=== PATIENT | male | born 1955 | race Caucasian/White ===

== ENCOUNTER 2024-01-22 15:04 | Inpatient (IN) | payer MEDICARE, SELFPAY ==
[2024-01-22] VITALS (12 sets, daily range): BP systolic 130–179; BP diastolic 91–119; PULSE 87; O2SAT 98; BMI 30.3; BMI 30.1
--- NOTE | 2024-01-22 12:22 | ED.GENMED ---
History of Present Illness
General
Chief Complaint: Dizziness
Source: patient and family
Time Seen by Provider: 01/22/24 11:34
History of Present Illness
History of Present Illness:
68-year-old male with past medical history of hypertension (does not take medications) and GERD presenting to the emergency department for evaluation of vertigo-like symptoms, generalized weakness and fatigue that been ongoing for the last 2 days or
so however patient notes that for the last year or longer he has been dealing with the vertigo-like symptoms but the last 2 days he describes it to be worse. When asked what exactly is worse about the symptoms patient states he feels as if he
cannot even walk straight now. Patient states he feels that he is slurring his speech but family who is present with him states his speech seems baseline and normal to them. Patient states 1 side does not feel more weak than the other that his
whole body just feels weak. He has not sought any medical care for this vertigo/dizziness since it started. Denies any headaches, visual changes, focal weakness or numbness, chest pain, shortness of breath, abdominal pain, nausea, vomiting.
Social history was noted for at least 1 day of alcohol use with patient stating he will have usually up to 3 drinks when he does drink. Family history was noted for multiple family members with previous CVA. Patient currently visiting family from
[place]
Past History
Past History
ED Past Medical History: GERD and HTN
ED Past Surgical History: Other (hernia)
Social History
Tobacco: Non-smoker
Alcohol: Occasional
Drug: None
Personal: Single
Living: alone
Employment: Not employed
Review of Systems
Review of Systems
All Other Systems: ROS reviewed and negative except as documented in HPI and ROS
Phy Exam
Physical Exam
Physical Exam:
GENERAL: Alert , in no apparent distress
EYE: pupils equal and reactive, pupils 3mm b/l, EOMI, no nystagmus
NECK: Supple, no significant adenopathy.
ENT: o/p clr, mmm.
CARDIAC: Regular rate and rhythm, no murmur .
LUNGS: Clear breath sounds bilaterally, no acute respiratory distress, no wheezes/rales/rhonchi
ABDOMEN: Soft, without focal tenderness, no r/g, no cvat
SKIN: Warm and dry, skin intact.
MUSCULOSKELETAL: No edema, well perfused.
PSYCH: Normal and appropriate interaction.
NEURO: Moves all extremities without difficulty, no ataxia, no dysarthria or aphasia, no facial droop, sensation intact throughout b/l UE and LE, strength intact and equal throughout
Scores
NIH Stroke Score
Level of Consciousness: 0 - Alert
LOC Questions: 0-Answers both correctly
LOC Commands: 0-Performs both correctly
Best Horizontal Gaze: 0-Normal
Visual Muller: 0=Normal, no visual loss
Facial Palsy: 0=Normal, symmetrical
Motor - Right Arm: 0=No drift 10 seconds
Motor - Left Arm: 0=No drift 10 seconds
Motor - Right Le-No drift 5 seconds
Motor - Left Le-No drift 5 seconds
Limb Ataxia: 0-Absent
Sensation: 0-Normal
Best Language: 0-No aphasia
Dysarthria: 0-Normal
Extinction and Inattention: 0-No abnormality
Total Score:: 0
Heart Failure Risk
Heart Failure Risk Score: Not Applicable
Heart Score for Chest Pain Patients
STEMI patient?: Not applicable
Withdrawal Assessment of Alcohol
Withdrawal Assessment Completed?: Not applicable
Course
Orders/Labs/Results
Orders:
Orders
01/22/24 11:26
EKG [Electrocardiogram (*1)] Urgent
Reason for Study: Vertigo / Dizzy
EKG- Treatment ONCE
01/22/24 11:58
CT Head W/o Iv Contrast Urgent
Comment:
Reason For Exam: worsening vertigo, feels unsteady
01/22/24 12:12
CMP [Comprehensive Metabolic Panel] Urgent
Cardiovascular Evaluation Urgent
Complete Blood Count/No Diff Urgent
Glycohemoglobin (HgbA1c) Urgent
01/22/24 12:26
Physical Therapy Consult [Pt Eval And Treat] Urgent
Treatment: vertigo eval
Activity Level: Ambulate
01/22/24 13:42
Aspirin Chewable [Low Strength Aspirin] 324 mg PO NOW STA
Clopidogrel Bisulfate [Plavix] 300 mg PO NOW STA
01/22/24 14:03
NEUROLOGY CONSULT Routine
Consulting Provider: Sloan Acevedo
Was physician already notified: Yes
01/22/24 14:05
Add On- LAB Routine
Tests Added?: Lipid panel, A1C
01/22/24 14:17
Admit/Transfer Patient As Directed
Co-Sign Provider:
Level of Care: Inpatient admission
Assign to:: Telemetry
Physician / Group: Deborah/hospitalist
Diagnosis: pontine stroke
Reason for Telemetry: CVA/TIA
Date to Stop Telemetry: 01/25/24
Time to Stop Telemetry: 11:00
Reason for Hospitalization: pontine stroke
Expected length of stay greater than two midnights?: Yes
ELOS- Estimated Length of Stay in days: 3
I certify the patient meets the requirements for IP care: Yes
Code Status As Directed
Resuscitation Status: Full Code
01/25/24 11:00
DC Protocol for Telemetry ONCE
Abnormal Lab Results
01/22/24
12:12
BUN 21 H mg/dl
(9-20)
01/22/24 12:12
01/22/24 12:12
Vital Signs
Initial and Last Documented VS:
Initial Vital Signs
Temp Pulse BP Pulse Ox
98.2 F 100 156/119 97
01/22/24 10:53 01/22/24 10:53 01/22/24 10:53 01/22/24 10:53
Last Documented Vital Signs
Temp Pulse Resp BP Pulse Ox
98.2 F 83 14 159/108 98
01/22/24 10:53 01/22/24 13:45 01/22/24 13:45 01/22/24 13:20 01/22/24 13:45
Floriculturist consulted with Physician
Floriculturist consulted with physician?: Yes
Name of Physician Consulted: Devin
MDM/Problems Addressed
Differential Diagnosis Includes:
BPPV, labyrhinthisis, cerebellar stroke, electrolyte abnormalities, anemia
MDM/Problems Addressed:
68-year-old male presenting to the emergency department for evaluation of vertiginous-like symptoms that have been ongoing for at least 1 year if not longer but acutely worse over the last 2 days per patient states he feels as if he cannot even
ambulate straight or steadily. Currently visiting from [place]. No focal findings during my exam however patient does not feel as if he is able to stand up and ambulate. Will obtain a CT scan of the head, labs and physical therapy consult
ordered. Unclear etiology for vertigo at this time.
*Radiology
Radiology exam reviewed: radiology read reviewed (16 mm pontine infarct)
*Pulse Oximetry
Patient hypoxic: no
*EKG
Interpreted by ED Provider?: Yes
Interpretation: normal
Heart Rate: 86
Rate: normal
Rhythm: sinus
Verbena: normal axis
Ischemia: no ischemia
*Hair Dryer Interpretation
Rate: normal
Rhythm: sinus
*Critical Care Note
Total Time (30-74mins, 75-104mins- exclusive of procedures): Not Applicable
Patient Management
Discussion with other providers: Hospitalist and [employer]
Escalation/DeEscalation of care consider admission/obs:
Patient CT scan shows a suspected right-sided pontine infarct. Radiology recommending further evaluation with MRI. Patient was seen by physical therapy who notes patient was not able to ambulate without significant fall risk. No vertiginous
symptoms elicited. They felt symptoms may be a little bit more exaggerated/weakness on the right side but this would go against the right-sided pontine findings on CT. I notified neurology who is recommending 324 mg of aspirin and 300 mg of Plavix
at this time. They will follow. Hospitalist team was notified as well and accepts for continued evaluation and treatment.
ED Attending Note
-
Portions of this chart may have been created with voice recognition software.� Occasional wrong word or��sound alike� substitutions may have occurred due to the inherent limitations of voice recognition software.
Discharge Plan
Departure
Patient Disposition: Admit
Date of Disposition: 01/22/24
Time of Disposition: 13:56
Presentation/result/management discussed w/ accepting MD/DO: Hospitalist
Discharge Problem:
Right pontine CVA, Hypertension
Referrals:
NONE,* [Family Provider] -
Interventions
Interventions:
*Risk Screen - Suicide Last Done: 01/22/24 11:45
*General Assessment Last Done: 01/22/24 11:45
*Neglect/Abuse Screening Last Done: 01/22/24 11:45
ED- Fall Risk Assessment Last Done: 01/22/24 11:45
*ED COVID-19 Vaccine History Last Done: 01/22/24 10:56
ED- Neurological Assessment Last Done: 01/22/24 11:45
ED- Cardiac Assessment Last Done: 01/22/24 11:45
ED Swallowing Screen Last Done: 01/22/24 11:45
Discharge Date and Time
Print Language: POLISH
[2024-01-22 12:23] LABS: Hematocrit 44.4 % (39.0-52.0); Hemoglobin 15.6 g/dL (13.0-18.0); Mean Corp Hgb Conc. 35.1 g/dL (33.0-37.0); Mean Corpuscular Hgb 28.5 pg (27.0-31.0); Mean Corpuscular Volume 81.2 fL (80.0-94.0); Mean Platelet Volume 10.3 fL (7.4-10.4); Platelet Count 181 10^3/uL (130-400); Red Blood Cell Count 5.47 10^6/uL (4.70-6.10); Red Cell Dist. Width 13.3 % (11.5-14.5); White Blood Cell Count 6.5 10^3/uL (4.8-10.8)
[2024-01-22 12:36] LABS: ALT (SGPT) 21 U/L (0-50); AST (SGOT) 22 U/L (17-59); Albumin 4.6 g/dl (3.5-5.0); Alkaline Phosphatase 81 U/L (38-126); Blood Urea Nitrogen 21 mg/dl (9-20); Calcium 9.8 mg/dl (8.4-10.2); Carbon Dioxide 23 mmol/L (22-30); Chloride 105 mmol/L (98-107); Estimated Creatinine Clearance 93 ml/min; Glucose 94 mg/dl (70-99); Potassium 4.4 mmol/L (3.5-5.1); Sodium 137 mmol/L (135-145); Total Bilirubin 1.2 mg/dl (0.2-1.3); Total Protein 7.1 g/dl (6.3-8.2); eGFR > 60.00
[2024-01-22] MEDS: LOW STRENGTH ASPIRIN 324 MG PO (13:53)
[2024-01-22] MEDS: PLAVIX 300 MG PO (13:54)
--- NOTE | 2024-01-22 14:00 | HPS.HSE ---
Family Physician
-
Family Physician: * NONE
Chief Complaint
-
Severe generalized weakness, subjective slurred speech
History of Present Illness
HPI: 68-year-old male with past medical history of hypertension (does not take medications) and GERD; p/w generalized weakness so much so that he is unable to stand or walk.
Patient has been feeling weak for the past year or so, but his weakness has become significantly worse over the past 2 days prior to admission.
He also endorsed to subjective slurred speech.
He denies to any dizziness/room spinning sensation, headache, nausea/vomiting, fever/chills, chest pain/shortness of breath, abdominal pain, change in urination or bowel movement.
Patient admits to binge smoking, and binge drinking occasionally.
He is currently visiting family from [place] where he resides normally.
Medical History
Past Medical History
Past Medical History: Reports GERD and HTN
Past Surgical History: Reports Other (Right inguinal hernia surgery)
Social History
Tobacco: Smoker
Alcohol: Occasional
Family History
Family History: Not pertinent
Allergies / Home Medications
Allergies reflects when Allergies were last updated in [facility].
Home Medications with original date entered in [facility]
Allergy/Medication List:
Medications on admission are unable to be verified or confirmed at this time.
Review of Systems
-
Neurological: Reports See HPI and Weakness; Denies Headache or Numbness
Physical Exam
Vital Signs
Vital Signs
Temp Pulse Resp BP Pulse Ox
36.8 C 83 14 159/108 98
01/22/24 10:53 01/22/24 13:45 01/22/24 13:45 01/22/24 13:20 01/22/24 13:45
Physical Exam
General: Well Developed, Well Nourished, No Apparent Distress, Comfortable and Conversant
HEENT: NormoCephalic, Moist mucous membranes and Atraumatic
Respiratory: Clear and Non Labored Respirations; No Accessory Resp Muscle Use
Cardiac: S1/S2 and Regular Rhythm; No Murmur or Rub
GI: Soft, Non Tender, Non Distended and Normal Bowel Sounds; No Organomegaly
Rectal: Deferred by Provider
Musculoskeletal: No Clubbing, No Cyanosis and No Edema
Skin: No Rash
Neuro: Awake and AO x 3; No Facial Droop
Psych: Calm and Intact Judgment/Insight
Laboratory Results
-
01/22/24 12:12
01/22/24 12:12
Laboratory Results
Total Bilirubin 1.2 mg/dl (0.2-1.3) 01/22/24 12:12
AST 22 U/L (17-59) 01/22/24 12:12
ALT 21 U/L (0-50) 01/22/24 12:12
Alkaline Phosphatase 81 U/L (38-126) 01/22/24 12:12
Data Reviewed
-
CT Scan: Report Reviewed by me
Lab Data: Labs Reviewed by me
Impression/Plan
-
HPI: 68-year-old male with past medical history of hypertension (does not take medications) and GERD; p/w generalized weakness so much so that he is unable to stand or walk.
Patient has been feeling weak for the past year or so, but his weakness has become significantly worse over the past 2 days prior to admission.
He also endorsed to subjective slurred speech.
He denies to any dizziness/room spinning sensation, headache, nausea/vomiting, fever/chills, chest pain/shortness of breath, abdominal pain, change in urination or bowel movement.
Patient admits to binge smoking, and binge drinking occasionally.
He is currently visiting family from [place] where he resides normally.
A/P:
# Generalized weakness, likely due to pontine stroke
CT head: 16mm low-density lesion in the anterior aspect of the right side of the josé miguel suggesting pontine infarct which, if clinically indicated, could be further evaluated with MRI.
Check MRI brain, MRA brain and neck
Check LDL and A1C
Status post full dose aspirin and Plavix in ER, continue with DAPT aspirin and Plavix
Speech eval prior to starting diet
Neurology consult
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
Monitor blood pressure, allow permissive hypertension for now
# GERD
DVT ppx: SCD for now
FC
[2024-01-22 14:42] LABS: HDL Cholesterol 46 mg/dl; LDL Cholesterol, Calculated 129 mg/dl; Total Cholesterol 201 mg/dl (50-199); Triglyceride 134 mg/dl (10-149); Very Low Density Lipoprotein 26 mg/dl (0-30)
[2024-01-22] MEDS: LIPITOR 40 MG PO (17:55)
[2024-01-23 03:00] VITALS: BP 152/102
[2024-01-23 06:00] VITALS: BMI 30.1
[2024-01-23 07:10] VITALS: BP 147/113
[2024-01-23 07:29] LABS: HDL Cholesterol 46 mg/dl; LDL Cholesterol, Calculated 135 mg/dl; Total Cholesterol 200 mg/dl (50-199); Triglyceride 96 mg/dl (10-149); Very Low Density Lipoprotein 19 mg/dl (0-30)
[2024-01-23] MEDS: ASPIR LOW (ENTERIC COATED) 81 MG PO (08:27)
[2024-01-23] MEDS: PLAVIX 75 MG PO (08:28)
--- NOTE | 2024-01-23 08:53 | CON.NEURO4 ---
Consultation - Neurology 4
-
CONSULTING PHYSICIAN: Wallace Lisa MD (Neurology)
REFERRING PHYSICIAN: Sherri Cabrera
DICTATED BY: Wallace Lisa
DATE/TIME OF REQUEST: 01/22/2024
DATE/TIME OF CONSULTATION: 01/23/2024 0845
Reason for Consultation: Unsteady gait
History of Present Illness:
This is a 68 year old right handed male who was admitted to the hospital with difficulty walking. Patient's symptoms began on January 18Monday. He gives a history of GERD hypertension who is not on antihypertensives. He was in his usual state of
health till Monday when he noted that he had difficulty maintaining his balance and difficulty walking. He did not seek any medical attention and came into the emergency room yesterday. On admission he was noted to have slurred speech with left
facial droop and his blood pressure was elevated. He denies headache dizziness double vision blurring of vision. No focal weakness or numbness. No history of falls or head injuries no loss conscious no seizures
-
Past Medical History: HTN, GERD
Surgical History: None
Family History: HTN
Social History: Lives alone. Smokes weekly. Drink Whisky weekly. He lives in [place] and is visiting family in [place]
Allergies: Penicillin
Home Medications: Prilosec
Review of Symptoms:
Patient denies any fever, headache, chest pain, shortness of breath, GI or symptoms.
�Per the HPI.�All systems are reviewed negative except above.
Vital Signs: Vital Signs
Temp Pulse Resp BP Pulse Ox
36.8 C 89 18 147/113 99
01/23/24 07:10 01/23/24 07:10 01/23/24 07:10 01/23/24 07:10 01/23/24 07:10
Physical Exam:
The patient is afebrile, heart sounds S1 and S2 are (regular / irregular), and chest is clear to auscultation bilaterally.
Head and neck: Normocephalic atraumatic extraocular movements intact pupils equal reactive to light
Abdomen: Soft bowel sounds present
Extremities: Clubbing cyanosis or edema
NIH Stroke Scale (if applicable): 3
Neurologic Examination:
The patient is awake, alert and oriented x 3. (He/She) is able to follow commands and answer questions appropriately. There is no aphasia or dysarthria. On cranial nerve assessment, pupils are 3 mm bilateral, round and reactive to light and
accommodation. Visual crowe are full. Extraocular movements are intact. Facial sensations are intact and bilaterally symmetrical. There is facial asymmetry with left facial droop(UMN). Hearing is intact bilaterally to normal conversation volume.
Tongue palate and uvula are midline. Sternocleidomastoid strengths are full bilaterally.
Motor strengths are 5/5 bilateral upper and lower extremities on medical research [place] scale. There is no drift or involuntary movement noted.
Deep tendon reflexes are 4+ bilateral upper and lower extremities and Babinski is absent bilaterally.
Sensations of pain, touch, temperature and vibration are intact and bilaterally symmetrical. There was no extinction noted on double simultaneous stimulation. Coordination is intact by finger to nose bilaterally. Gait is assisted
Lab Results: Lab Results
01/22/24 12:12
01/22/24 12:12
Sodium 137 mmol/L (135-145) 01/22/24 12:12
Potassium 4.4 mmol/L (3.5-5.1) 01/22/24 12:12
BUN 21 mg/dl (9-20) H 01/22/24 12:12
Glucose 94 mg/dl (70-99) 01/22/24 12:12
Calcium 9.8 mg/dl (8.4-10.2) 01/22/24 12:12
LDL Cholesterol, Calc 135 mg/dl 01/23/24 06:43
Neuro Imaging: CT of the head shows diffuse cortical atrophy with extensive small vessel disease.
MRI of the brain: . Acute right pontine lacunar infarct. Chronic ischemic changes pontine. Cortical atrophy extensive small vessel disease
MRA of the head shows atherosclerotic changes with dilatation of the internal carotid
MRA of the neck shows
1. 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
2. Fusiform aneurysmal dilatation of both proximal internal carotid arteries (1.1 cm diameter).
3. Aneurysmal dilatation of the terminal communicating segment of the intracranial left internal carotid artery (8 mm diameter).
4. Severe calcific atherosclerotic plaque in the right intracranial vertebral artery causing 50% diameter stenosis.
5. 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
Impression:
Mr. JAMEY MARMOLEJO is a 68 year old M with history of uncontrolled hypertension who has presented to the hospital with new onset gait ataxia with hyperreflexia. MRI revealed acute pontine lacunar infarction and chronic ischemic changes in the josé miguel
Given ataxia and hyperreflexia and arthritic changes in the C-spine there is a concern for cervical spondylosis and cord impingement
Patient has the following risk factors for their symptoms: HTN and smoking
Recommendations:
1. Aspirin 81 mg
2. Strict blood pressure control
3. Stop smoking
4. Statins
5. MRI cervical spine
6. PT/OT
Discussed patient care with: Hospitalist
Medications
-
Active Medications
Generic Name Dose Route Start Last Admin
Trade Name Freq PRN Reason Stop Dose Admin
Acetaminophen 650 mg 01/22/24 17:11
Acetaminophen 650 Mg Rectal Suppository RECTAL 02/19/24 17:10
Q4HPRN PRN
BRISENO, mild pain, or temp >100.4F
Acetaminophen 650 mg 01/22/24 17:11
Acetaminophen 325 Mg Tablet PO 02/19/24 17:10
Q4HPRN PRN
BRISENO, mild pain, or temp >100.4F
Aspirin 81 mg 01/23/24 08:00 01/23/24 08:27
Aspirin 81 Mg (Enteric Coated) Tablet PO 02/20/24 07:59 81 mg
DAILY ISSAC Administration
Atorvastatin Calcium 40 mg 01/22/24 18:00 01/22/24 17:55
Atorvastatin (Lipitor) 40 Mg Tablet PO 02/19/24 17:59 40 mg
QPM ISSAC Administration
Clopidogrel Bisulfate 75 mg 01/23/24 08:00 01/23/24 08:28
Clopidogrel 75 Mg Tablet PO 02/12/24 08:01 75 mg
DAILY ISSAC Administration
Non-Formulary Medication 10 mg 01/23/24 08:45
Omeprazole PO 02/20/24 08:44
DAILY ISSAC
Sodium Chloride 0 flush 01/22/24 18:00
Sodium Chloride 0.9% (Flush) Syringe IV 02/19/24 17:59
PER PROTOCOL ISSAC
Home Medications
�Medication �Instructions �Recorded
Unknown Eye Drops 1 drp BOTH EYES HSPRN PRN dry eyes 01/22/24
omeprazole 10 mg capsule,delayed 10 mg PO DAILY 01/22/24
release
polyethylene glycol 400 1 % eye 1 drp BOTH EYES DAILYPRN PRN dry 01/22/24
drops (Visine Dry Eye Relief) eyes
Vital Signs and Labs
-
Vital Signs and Labs:
Vital Signs
Temp Pulse Resp BP Pulse Ox
36.8 C 89 18 147/113 99
01/23/24 07:10 01/23/24 07:10 01/23/24 07:10 01/23/24 07:10 01/23/24 07:10
Lab Results
01/22/24 12:12
01/22/24 12:12
Sodium 137 mmol/L (135-145) 01/22/24 12:12
Potassium 4.4 mmol/L (3.5-5.1) 01/22/24 12:12
BUN 21 mg/dl (9-20) H 01/22/24 12:12
Glucose 94 mg/dl (70-99) 01/22/24 12:12
Calcium 9.8 mg/dl (8.4-10.2) 01/22/24 12:12
LDL Cholesterol, Calc 135 mg/dl 01/23/24 06:43
Allergies
-
Allergies
Allergy/AdvReac Type Severity Reaction Status Date / Time
Penicillins Allergy Rash Verified 01/22/24 10:59
--- NOTE | 2024-01-23 09:09 | W.PN.HOSP.TC ---
Today's Communication/Plan
-
see A/P
Assessment / Plan
Assessment / Plan
HPI: 68-year-old male with past medical history of hypertension (does not take medications) and GERD; p/w generalized weakness so much so that he is unable to stand or walk.
Patient has been feeling weak for the past year or so, but his weakness has become significantly worse over the past 2 days prior to admission.
He also endorsed to subjective slurred speech.
He denies to any dizziness/room spinning sensation, headache, nausea/vomiting, fever/chills, chest pain/shortness of breath, abdominal pain, change in urination or bowel movement.
Patient admits to binge smoking, and binge drinking occasionally.
He is currently visiting family from [place] where he resides normally.
A/P:
# Generalized weakness due to acute pontine stroke
CT head: 16mm low-density lesion in the anterior aspect of the right side of the candice suggesting pontine infarct which, if clinically indicated, could be further evaluated with MRI.
MRI brain confirmed ACUTE and CHRONIC ISCHEMIC INFARCTS in the CANDICE.
MRA brain and neck noted right intracranial vertebral artery 25-50% stenosis; 70% stenosis of right posterior cerebral artery; 70% narrowing of right internal carotid artery.
Recc pt to follow up with vascular team when he returns to [place]
LDL at 135, started Lipitor 40 mg HS
Follow A1C
Check echo
Status post full dose aspirin and Plavix in ER, continue with DAPT aspirin and Plavix
Start Norvasc 2.5 mg for better BP control
Speech eval prior to starting diet
PT OT eval
Neurology on board
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
Start Norvasc 2.5 mg for better BP control
# Hyperreflexia noted by Neuro, felt unrelated to stroke
Check MRI Cervical spine
# GERD
PPI
DVT ppx: Lovenox SQ
FC
DW RN
DW Neuro Dr Wallace Lisa
total time spent 51 min
Anticipated Discharge: Within 24 hours
Subjective/Interval History
-
Date of Service: January 23, 2024
Objective Data
-
Vital Signs:
Vital Signs
Temp Pulse Resp BP Pulse Ox
36.8 C 89 18 147/113 99
01/23/24 07:10 01/23/24 07:10 01/23/24 07:10 01/23/24 07:10 01/23/24 07:10
Review of Systems
-
Neuro: Reports Other (off balance )
Physical Exam
-
General: Well Developed, Well Nourished, No Apparent Distress, Comfortable and Conversant; Negative Respiratory Distress
HEENT: Normocephalic, Atraumatic, Nose Appears Normal and Ears Appear Normal; Negative Oxygen
Respiratory: Clear to Auscultation and Non Labored Respirations; Negative Accessory Resp Muscle Use
Cardiac: Regular Rhythm and S1/S2
GI: Soft, Nontender, Nondistended and Normal Bowel Sounds
Skin: Warm and Dry
Neuro: Awake, Alert and Oriented
Psych: Calm
Data Reviewed
-
MRI: Report Reviewed by me, Discussed with Physician and Discussed with Patient
Labs: Labs Reviewed by me
[2024-01-23] MEDS: PROTONIX 20 MG PO (09:22)
[2024-01-23 09:30] LABS: Glycohemoglobin (HgbA1c) 5.2 % (4.0-5.6)
--- NOTE | 2024-01-23 10:16 | CARDSERVLU ---
Echocardiogram with Lumason completed after protocol screening completed. Allergies verified.
Patent IV site: _Left antecubital site clear____
IV site flushed with 0.9% NaCl pre and post administration.
Diluted bolus method utilized to enhance visualization of ventricular sanchez.
Total volume given: __5__ mL
Patient tolerated all procedures well without complications.
--- NOTE | 2024-01-23 10:38 | PTOTSP ---
Speech Therapy Assessment
Patient endorses slightly slurred speech that is no readily noted or impacting patient on a functional level. Expressive and receptive language skills deemed within functional limits. Question if patient presents with reduced reasoning/problem
solving skills.
Recommend
1. Continue with current diet of regular solids and thin liquids.
2. ST will follow and attempt further assessment of cognitive/communication skills.
3. Comprehensive assessment in next level of care
--- NOTE | 2024-01-23 10:58 | CM ---
Addendum entered by Ilsa Loera 01/23/24 15:09:
Per physician patient is now agreeable to [facility] at [facility], physical therapy are recommending acute rehab, referral sent to [facility], and will await PM&R consult.
Original Note:
dealer sales manager reviewed patient's chart and met with patient and patient lives over a garage in [place] with 3 flights of stairs into home. Patient reports he was independent with adl's and ambulation, no dme, patient drove from [place] to visit
friend in this area. Patient is planning on returning to [place] when stable. Patient does not have a primary care physician.
Pharmacy; [facility]
Plan; To follow with patient progress and assist with discharge planning.
[2024-01-23 12:53] VITALS: BP 164/108; PULSE 108
[2024-01-23 15:10] VITALS: BP 139/111
[2024-01-23] MEDS: LIPITOR 40 MG PO (15:58)
[2024-01-23] MEDS: NORVASC 2.5 MG PO ×2 (15:59→21:04)
[2024-01-23] MEDS: LOVENOX SC (15:59)
--- NOTE | 2024-01-23 16:45 | CON.MR ---
Consultation
Consultation Request
Date/Time Consultation Performed: 01/23/24, 1615
Performing Provider: Dr. Yepez
Reason for Consultation: CVA
Medical History
-
Chief Complaint: CVA
History of Present Illness:
I had the opportunity to see Joce Munoz in rehabilitation consultation today. This is a 68 year old male with past medical history of hypertension and GERD admitted after some increased weakness, slurred speech. States has had some generalized
weakness for many months, but worse over the past couple of days. Lives in [place] and is here visiting friends. No falls or any buckling of the legs. Denies any numbness or tingling in the UE or LE.
Initial head CT did note some right pontine changes, and MRI revealed right pontine lacunar infarct and well as extensive small vessel white matter changes, bilateral ICA dilatation/aneurysm, Right ICA stenosis, Right MIXING PAN TENDER stenosis, but no surgical
intervention deemed warranted.
Hospital course so far otherwise unremarkable.
Patient seen at bedside this afternoon. Lying comfortably in bed. Denies any headache or dizziness. No vision changes. Denies chest pain or SOB, no GI complaints. Denies any numbness or paresthesias in the UE/LE.
Past Medical History
Past Medical History: GERD and HTN
Family History
Family History: Reviewed & Not Pertinent
Social History
Functional Level Premorbidity:
Independent for all activities. Denies any previous cane or assitive device. Lives alone in 2nd floor apartment above garage. ~20 steps to enter. Drives and does have his car here from [place].
Current Funct Level: Ambulation, Transfer, UE/LE Dressing:
Supervision transfers, Ambulation contact guard 50' with RW, but min A with no assistive device.
Tobacco: Smoker
Alcohol: Occasional
Number of Floors: 2
Potential First Floor Set Up: No
Driving: Yes
Allergies / Home Medications
Allergy/AdvReac Type Severity Reaction Status Date / Time
Penicillins Allergy Rash Verified 01/22/24 10:59
�Medication �Instructions �Recorded �Confirmed �Last Taken �Type
Unknown Eye Drops 1 drp BOTH EYES HSPRN PRN dry eyes 01/22/24 01/22/24 Unknown History
omeprazole 10 mg capsule,delayed 10 mg PO DAILY 01/22/24 01/22/24 01/22/24 History
release
polyethylene glycol 400 1 % eye 1 drp BOTH EYES DAILYPRN PRN dry 01/22/24 01/22/24 Unknown History
drops (Visine Dry Eye Relief) eyes
Review Of Systems
-
History Source: Patient
All other systems: Negative unless noted
Constitutional: Reports No Symptoms
Eye: Reports No Symptoms
EENT: Reports No Symptoms
Respiratory: Reports No Symptoms
Cardiac: Reports No Symptoms
Abdomen/GI: Reports No Symptoms
: Reports No Symptoms
Musculoskeletal: Reports No Symptoms
Integumentary: Reports No Symptoms
Neurological: Reports No Symptoms
Psych: Reports No Symptoms
Endocrine: Reports No Symptoms
Hematologic/Lymphatic: Reports No Symptoms
Immunology: Reports No Symptoms
Physical Exam
Active Medications
Generic Name Dose Route Start Last Admin
Trade Name Freq PRN Reason Stop Dose Admin
Acetaminophen 650 mg 01/22/24 17:11
Acetaminophen 650 Mg Rectal Suppository RECTAL 02/19/24 17:10
Q4HPRN PRN
BRISENO, mild pain, or temp >100.4F
Acetaminophen 650 mg 01/22/24 17:11
Acetaminophen 325 Mg Tablet PO 02/19/24 17:10
Q4HPRN PRN
BRISENO, mild pain, or temp >100.4F
Amlodipine Besylate 2.5 mg 01/23/24 16:00 01/23/24 15:59
Amlodipine 2.5 Mg Tablet PO 02/20/24 15:59 2.5 mg
BID ISSAC Administration
Aspirin 81 mg 01/23/24 08:00 01/23/24 08:27
Aspirin 81 Mg (Enteric Coated) Tablet PO 02/20/24 07:59 81 mg
DAILY ISSAC Administration
Atorvastatin Calcium 40 mg 01/22/24 18:00 01/23/24 15:58
Atorvastatin (Lipitor) 40 Mg Tablet PO 02/19/24 17:59 40 mg
QPM ISSAC Administration
Clopidogrel Bisulfate 75 mg 01/23/24 08:00 01/23/24 08:28
Clopidogrel 75 Mg Tablet PO 02/12/24 08:01 75 mg
DAILY ISSAC Administration
Enoxaparin Sodium 40 mg 01/23/24 18:00 01/23/24 15:59
Enoxaparin Sodium 40 Mg/0.4 Ml Syringe SC 02/20/24 17:59 Not Given
QPM ISSAC
Pantoprazole Sodium 20 mg 01/23/24 10:00 01/23/24 09:22
Pantoprazole 20 Mg Delayed Release Tablet PO 02/20/24 09:59 20 mg
DAILY ISSAC Administration
Sodium Chloride 0 flush 01/22/24 18:00
Sodium Chloride 0.9% (Flush) Syringe IV 02/19/24 17:59
PER PROTOCOL ISSAC
Vital Signs
Temp Pulse Resp BP Pulse Ox
98.1 F 100 19 139/111 97
01/23/24 15:10 01/23/24 15:10 01/23/24 15:10 01/23/24 15:10 01/23/24 15:10
Height 6 ft 6 in
Actual Weight 117.962 kg
Body Mass Index (BMI) 30.1
Physical Exam
Physical Exam:
General Appearance/Observation: Well-developed, well-nourished individual in no apparent distress, lying comfortably in bed
Pain/Comfort Assessment: Denies
Mood/Affect: Appropriate
Eyes: Conjunctiva/Lids: normal Pupils: pupils equal round and reactive to light and Accommodation. No nystagmus
Ears/Nose/Throat: oral mucosa moist, throat clear. Lips/Teeth/Gums: normal
Neck: No muscle spasm or tenderness
Cardiovascular: Heart: regular, no murmur
Pulses: dorsalis pedis 2+ bilaterally
Respiratory: Respiratory Effort/Chest Expansion: normal Auscultation: Clear to auscultation bilaterally
Gastrointestinal: abdomen not tender, no distension, normal abdominal bowel sounds
Genitourinary: No Beltran
Rectal Exam: Deferred
Extremities: Edema: None Cyanosis: None Trophic changes: None
Neurology Exam:
Orientation: Alert, Oriented to self, Time, Place
Memory: Intact immediately and at 3 minutes
Higher cortical function
Speech: Intact
Repetition: Intact
Comprehension: Intact
Two step command: Intact
Naming: Intact
Cranial Nerves: -
CNII: Pupillary light reflex: Intact Visual Field: Intact
CN III, IV, : Extraocular muscles: Intact
CN V: Facial Sensation at Forehead: Intact , Maxilla: Intact, Mandible: Intact
CN VII: Facial movement: Mild left sided weakness.
CN VIII: Hearing: Normal
CN IX/X: Speech & swallow: Normal, Position of Uvula: Midline
CN XI: Shoulder shrug: Symmetric
CN XII: Tongue protrusion: Midline
Sensory:
Light touch: Intact in bilateral upper and lower extremities
Reflexes:
Achilles: 1+ bilaterally
Babinski: Downgoing bilaterally
Clonus: None
Calixto: Negative bilaterally
Cerebellar: Dysmetria/Ataxia: Mild apraxia/ataxia with Left more than right UE.
Musculoskeletal:
Motor: (Manual muscle scale 0-5)
Muscle SA EF WE EE FF FA HF KE DF EHL PF
Right 5 5 5 5 5 5 5 5 5 5 5
Left 4 5 5 5 4 4 4+ 5 5 5 5
Tone: Normal in all extremities
Range of Motion: Passively within normal limits in all extremities
Lab Results
01/22/24 12:12
01/22/24 12:12
WBC 6.5 10^3/uL (4.8-10.8) 01/22/24 12:12
Hgb 15.6 g/dL (13.0-18.0) 01/22/24 12:12
Hct 44.4 % (39.0-52.0) 01/22/24 12:12
MCV 81.2 fL (80.0-94.0) 01/22/24 12:12
Plt Count 181 10^3/uL (130-400) 01/22/24 12:12
Sodium 137 mmol/L (135-145) 01/22/24 12:12
Potassium 4.4 mmol/L (3.5-5.1) 01/22/24 12:12
Chloride 105 mmol/L (98-107) 01/22/24 12:12
Carbon Dioxide 23 mmol/L (22-30) 01/22/24 12:12
BUN 21 mg/dl (9-20) H 01/22/24 12:12
Creatinine 1.0 mg/dL (0.7-1.3) 01/22/24 12:12
eGFR > 60.00 01/22/24 12:12
Glucose 94 mg/dl (70-99) 01/22/24 12:12
Hemoglobin A1c 5.2 % (4.0-5.6) 01/22/24 12:12
Calcium 9.8 mg/dl (8.4-10.2) 01/22/24 12:12
Total Bilirubin 1.2 mg/dl (0.2-1.3) 01/22/24 12:12
AST 22 U/L (17-59) 01/22/24 12:12
ALT 21 U/L (0-50) 01/22/24 12:12
Alkaline Phosphatase 81 U/L (38-126) 01/22/24 12:12
Total Protein 7.1 g/dl (6.3-8.2) 01/22/24 12:12
Albumin 4.6 g/dl (3.5-5.0) 01/22/24 12:12
Diagnostic Results
As per HPI.
Comorbidities / Impairment Group
Comorbidities:
HTN
Impairment Group:
R CVA, L weakness
Assessment / Plan
Plan
Assessment:
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
PM&R PT/OT to increase independence with ADLs, improve balance, coordination, endurance, strength, mobility, community reintegration, decreased burden of care on others and family education.
CVA: Secondary prophylaxis with aspirin, plavix, statin, and blood pressure control (SBP less than 180 and diastolic less than 100 to participate with therapy for ischemic stroke). Continue to monitor neurologic status.
- Neurology following and concerned some of the ataxia, and increased reflexes could be myelopathic - checking MRI cervical spine.
Left nondominant hemiparesis: High risk for falls and sliding out of chair/bed. Safety reinforced.
Dysarthria: speech evaluation
HTN: continue amlodipine, monitor closely
Psych: Psychology consult. Monitor mood, adjust medications as needed.
Skin: monitor for pressure sores/rashes/lesions.
Pain: acetaminophenas needed.
Bowel: Colace and Senna, PRN bisacodyl.
Bladder: Time void, PVRs, PRN straight cath.
Alcohol: sounded like some intermittent binge drinking. Not consistent use
Tobacco Abuse: Smoking cessation counseling.
GI Prophylaxis: Pantoprazole
DVT Prophylaxis: Lovenox DQ
Safety: Continue to reinforce assistance with all transfers.
Code Status: Full code
Dispo (date/plan/equipment needs): Eventually home. Social history reviewed. States his friend willing to drive him back to [place] once improved.
Functional and Medical Goals: Modified Independent with ADL�s, ambulation, transfers
Summary
-
Things that must be addressed in Hospital prior to discharge:
1. Please continue bedside PT/OT.
2. Please consult speech for dysarthria.
3. Blood pressure must be less than 180 systolic and 100 diastolic for 24 hours before being stable for transfer to SNF/acute rehab.
Discharge Destination: Acute rehab prior to discharge home alone - Lives in [place] so will need social work/case management to help assist with transport back home to [place].
Summary of recommendations:
- Discharge Destination: acute rehab.
Will continue to follow patient.
Thank you for allowing me to care for your patient. Please contact me with any questions or concerns.
Data Reviewed
-
Radiology: Report Reviewed by me
Labs: Labs Reviewed by me
Comments
-
This note was dictated using a voice recognition system. Please excuse any typographical errors from picking machine operator helper. If you believe there are any discrepancies, please notify our office.
[2024-01-23 19:52] VITALS: BP 156/107
[2024-01-23 23:38] VITALS: BP 129/87
[2024-01-24] VITALS (7 sets, daily range): BP systolic 135–162; BP diastolic 97–111; PULSE 106
[2024-01-24] MEDS: PROTONIX 20 MG PO (08:12)
[2024-01-24] MEDS: NORVASC 2.5 MG PO ×2 (08:12→20:19)
[2024-01-24] MEDS: ASPIR LOW (ENTERIC COATED) 81 MG PO (08:12)
[2024-01-24] MEDS: PLAVIX 75 MG PO (08:12)
--- NOTE | 2024-01-24 09:27 | W.PN.HOSP.TC ---
Today's Communication/Plan
-
see A/P
Assessment / Plan
Assessment / Plan
HPI: 68-year-old male with past medical history of hypertension (does not take medications) and GERD; p/w generalized weakness so much so that he is unable to stand or walk.
Patient has been feeling weak for the past year or so, but his weakness has become significantly worse over the past 2 days prior to admission.
He also endorsed to subjective slurred speech.
He denies to any dizziness/room spinning sensation, headache, nausea/vomiting, fever/chills, chest pain/shortness of breath, abdominal pain, change in urination or bowel movement.
Patient admits to binge smoking, and binge drinking occasionally.
He is currently visiting family from [place] where he resides normally.
A/P:
# Generalized weakness due to acute pontine stroke
CT head: 16mm low-density lesion in the anterior aspect of the right side of the candice suggesting pontine infarct which, if clinically indicated, could be further evaluated with MRI.
MRI brain confirmed ACUTE and CHRONIC ISCHEMIC INFARCTS in the CANDICE.
MRA brain and neck not ed right intracranial vertebral artery 25-50% stenosis; 70% stenosis of right posterior cerebral artery; 70% narrowing of right internal carotid artery.
Recc pt to follow up with vascular team when he returns to [place]
LDL at 135, started Lipitor 40 mg HS
A1C 5.2%
Echo unrevealing: EF 55-60%. Mild concentric left ventricular hypertrophy. Normal diastolic function. Normal right ventricular size and function. No significant valvular pathology
Status post full dose aspirin and Plavix in ER, continue with DAPT aspirin and Plavix
Started Norvasc 2.5 mg BID for better BP control
Speech cleared for solid and thin liquid
Neurology on board
PT/OT/PMR recc Shen
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
Started Norvasc 2.5 mg BID for better BP control
# Hyperreflexia noted by Neuro, felt unrelated to stroke
MRI Cervical spine noted straightening of cervical spine, consistent with muscular spasm, cervical spinal cord normal
# GERD
PPI
DVT ppx: Lovenox SQ
FC
DW RN
DW friend at bedside
Anticipated Discharge: Within 24 hours
Subjective/Interval History
-
Date of Service: January 24, 2024
Objective Data
-
Vital Signs:
Vital Signs
Temp Pulse Resp BP Pulse Ox
36.8 C 94 18 161/111 98
01/24/24 07:00 01/24/24 07:00 01/24/24 07:00 01/24/24 07:00 01/24/24 07:00
I&O
01/23/24 01/24/24 01/25/24
06:59 06:59 06:59
Intake Total 1320 / 1320
Balance 1320 / 1320
Review of Systems
-
Neuro: Reports Other (off balance )
Physical Exam
-
General: Well Developed, Well Nourished, No Apparent Distress, Comfortable and Conversant; Negative Respiratory Distress
HEENT: Normocephalic, Atraumatic, Nose Appears Normal and Ears Appear Normal; Negative Oxygen
Respiratory: Clear to Auscultation and Non Labored Respirations; Negative Accessory Resp Muscle Use
Cardiac: Regular Rhythm and S1/S2
GI: Soft, Nontender, Nondistended and Normal Bowel Sounds
Skin: Warm and Dry
Neuro: Awake, Alert and Oriented
Psych: Calm and Intact Judgement/Insight
Data Reviewed
-
MRI: Report Reviewed by me, Discussed with Physician and Discussed with Patient
Labs: Labs Reviewed by me
--- NOTE | 2024-01-24 12:59 | CM ---
Addendum entered by Ilsa Loera 01/24/24 14:21:
Authorization submitted to patient's insurance [employer], pending ref # [id number]. All clinical faxed to [phone].
Original Note:
asset protection manager reviewed patient's chart and spoke with patient this am, and patient is agreeable to [facility], referral sent to [facility] and PM&R evaluated patient and will accept patient at [facility], patient needs Auth from insurance.
Plan; To reach out to patient's insurance for auth for Acute rehab at [facility].
[2024-01-24] MEDS: LOVENOX SC (17:05)
[2024-01-24] MEDS: LIPITOR 40 MG PO (17:06)
[2024-01-25 03:23] VITALS: BP 126/95
[2024-01-25 07:50] VITALS: BP 148/100
[2024-01-25] MEDS: NORVASC 2.5 MG PO ×2 (08:01→19:59)
[2024-01-25] MEDS: ASPIR LOW (ENTERIC COATED) 81 MG PO (08:02)
[2024-01-25] MEDS: PROTONIX 20 MG PO (08:02)
[2024-01-25] MEDS: PLAVIX 75 MG PO (08:02)
--- NOTE | 2024-01-25 08:35 | W.PN.HOSP.TC ---
Today's Communication/Plan
-
pending Shen
Assessment / Plan
Assessment / Plan
HPI: 68-year-old male with past medical history of hypertension (does not take medications) and GERD; p/w generalized weakness so much so that he is unable to stand or walk.
Patient has been feeling weak for the past year or so, but his weakness has become significantly worse over the past 2 days prior to admission.
He also endorsed to subjective slurred speech.
He denies to any dizziness/room spinning sensation, headache, nausea/vomiting, fever/chills, chest pain/shortness of breath, abdominal pain, change in urination or bowel movement.
Patient admits to binge smoking, and binge drinking occasionally.
He is currently visiting family from [place] where he resides normally.
A/P:
# Generalized weakness due to acute pontine stroke
CT head: 16mm low-density lesion in the anterior aspect of the right side of the candice suggesting pontine infarct which, if clinically indicated, could be further evaluated with MRI.
MRI brain confirmed ACUTE and CHRONIC ISCHEMIC INFARCTS in the CANDICE.
MRA brain and neck not ed right intracranial vertebral artery 25-50% stenosis; 70% stenosis of right posterior cerebral artery; 70% narrowing of right internal carotid artery.
Recc pt to follow up with vascular team when he returns to [place]
LDL at 135, started Lipitor 40 mg HS
A1C 5.2%
Echo unrevealing: EF 55-60%. Mild concentric left ventricular hypertrophy. Normal diastolic function. Normal right ventricular size and function. No significant valvular pathology
Status post full dose aspirin and Plavix in ER, continue with DAPT aspirin and Plavix
Started Norvasc 2.5 mg BID for better BP control
Speech cleared for solid and thin liquid
Neurology on board
PT/OT/PMR recc Shen
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
Started Norvasc 2.5 mg BID for better BP control
# Hyperreflexia noted by Neuro, felt unrelated to stroke
MRI Cervical spine noted straightening of cervical spine, consistent with muscular spasm, cervical spinal cord normal
# GERD
PPI
DVT ppx: Lovenox SQ
FC
Anticipated Discharge: Within 24 hours
Subjective/Interval History
-
Date of Service: January 25, 2024
Objective Data
-
Vital Signs:
Vital Signs
Temp Pulse Resp BP Pulse Ox
36.7 C 94 19 148/100 97
01/25/24 07:50 01/25/24 07:50 01/25/24 07:50 01/25/24 07:50 01/25/24 07:50
I&O
01/24/24 01/25/24 01/26/24
06:59 06:59 06:59
Intake Total 1320 / 1320 720 / 720
Balance 1320 / 1320 720 / 720
Review of Systems
-
Neuro: Reports Other (off balance )
Physical Exam
-
General: Well Developed, Well Nourished, No Apparent Distress, Comfortable and Conversant; Negative Respiratory Distress
HEENT: Normocephalic, Atraumatic, Nose Appears Normal and Ears Appear Normal; Negative Oxygen
Respiratory: Clear to Auscultation and Non Labored Respirations; Negative Accessory Resp Muscle Use
Cardiac: Regular Rhythm and S1/S2
GI: Soft, Nontender, Nondistended and Normal Bowel Sounds
Skin: Warm and Dry
Neuro: Awake, Alert and Oriented
Psych: Calm and Intact Judgement/Insight
Data Reviewed
-
MRI: Report Reviewed by me, Discussed with Physician and Discussed with Patient
Labs: Labs Reviewed by me
[2024-01-25 11:20] VITALS: BP 158/102
--- NOTE | 2024-01-25 11:44 | CM ---
Addendum entered by Ilsa Loera 01/25/24 16:57:
Patient has been approved for 7 days at [facility], Auth [id number], per Latisha in admissions at [facility] they can take patient tomorrow, 01/26/24.
[facility] Report [phone]
Addendum entered by Ilsa Loera 01/25/24 14:29:
regional safety manager received a call from [facility]'s insurance and they are requesting physician notes from today and updated PT/OT notes which caseworker intake has faxed to [phone].
Original Note:
Chart reviewed and physical therapy are still recommending acute rehab for patient, referral sent to [facility] and patient was accepted at [facility]. regional safety manager sent all clinicals to [facility]'s insurance for Auth for acute rehab. Still no
determination from insurance.
Pending ref # [id number]
Plan; Await authorization from patient's insurance for acute rehab.
[2024-01-25 14:47] VITALS: BP 147/106
[2024-01-25] MEDS: LOVENOX SC (16:44)
[2024-01-25] MEDS: LIPITOR 40 MG PO (16:45)
[2024-01-25 19:43] VITALS: BP 160/111
[2024-01-25 22:32] VITALS: BP 124/97
[2024-01-26 03:37] VITALS: BP 147/104
[2024-01-26 07:30] VITALS: BP 114/89
--- NOTE | 2024-01-26 08:18 | W.PN.HOSP.TC ---
Addendum entered and electronically signed by Sherri Cabrera MD 01/26/24 11:32:
total DC time 36 min
Original Note:
Today's Communication/Plan
-
For Shen
Assessment / Plan
Assessment / Plan
HPI: 68-year-old male with past medical history of hypertension (does not take medications) and GERD; p/w generalized weakness so much so that he is unable to stand or walk.
Patient has been feeling weak for the past year or so, but his weakness has become significantly worse over the past 2 days prior to admission.
He also endorsed to subjective slurred speech.
He denies to any dizziness/room spinning sensation, headache, nausea/vomiting, fever/chills, chest pain/shortness of breath, abdominal pain, change in urination or bowel movement.
Patient admits to binge smoking, and binge drinking occasionally.
He is currently visiting family from [place] where he resides normally.
A/P:
# Generalized weakness due to acute pontine stroke
CT head: 16mm low-density lesion in the anterior aspect of the right side of the candice suggesting pontine infarct which, if clinically indicated, could be further evaluated with MRI.
MRI brain confirmed ACUTE and CHRONIC ISCHEMIC INFARCTS in the CANDICE.
MRA brain and neck not ed right intracranial vertebral artery 25-50% stenosis; 70% stenosis of right posterior cerebral artery; 70% narrowing of right internal carotid artery.
Recc pt to follow up with vascular team when he returns to [place]
LDL at 135, started Lipitor 40 mg HS
A1C 5.2%
Echo unrevealing: EF 55-60%. Mild concentric left ventricular hypertrophy. Normal diastolic function. Normal right ventricular size and function. No significant valvular pathology
Status post full dose aspirin and Plavix in ER, continue with DAPT aspirin and Plavix
Started Norvasc 2.5 mg BID for better BP control
Speech cleared for solid and thin liquid
Neurology on board
PT/OT/PMR recc Ac
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
Started Norvasc 2.5 mg BID for better BP control
# Hyperreflexia noted by Neuro, felt unrelated to stroke
MRI Cervical spine noted straightening of cervical spine, consistent with muscular spasm, cervical spinal cord normal
# GERD
PPI
DVT ppx: Lovenox SQ
FC
Anticipated Discharge: Within 24 hours
Subjective/Interval History
-
Date of Service: January 26, 2024
Objective Data
-
Vital Signs:
Vital Signs
Temp Pulse Resp BP Pulse Ox
36.7 C 93 20 147/104 97
01/26/24 03:37 01/26/24 03:37 01/26/24 03:37 01/26/24 03:37 01/26/24 03:37
I&O
01/25/24 01/26/24 01/27/24
06:59 06:59 06:59
Intake Total 720 / 720 1560 / 1560
Balance 720 / 720 1560 / 1560
Review of Systems
-
Neuro: Reports Other (off balance )
Physical Exam
-
General: Well Developed, Well Nourished, No Apparent Distress, Comfortable and Conversant; Negative Respiratory Distress
HEENT: Normocephalic, Atraumatic, Nose Appears Normal and Ears Appear Normal; Negative Oxygen
Respiratory: Clear to Auscultation and Non Labored Respirations; Negative Accessory Resp Muscle Use
Cardiac: Regular Rhythm and S1/S2
GI: Soft, Nontender, Nondistended and Normal Bowel Sounds
Skin: Warm and Dry
Neuro: Awake, Alert and Oriented
Psych: Calm and Intact Judgement/Insight
Data Reviewed
-
MRI: Report Reviewed by me, Discussed with Physician and Discussed with Patient
Labs: Labs Reviewed by me
--- NOTE | 2024-01-26 08:58 | CM ---
Patient has been accepted at [facility] today 4pm transfer
Plan; Patient to transfer to [facility] today
[facility] Report [phone]
[2024-01-26] MEDS: NORVASC 2.5 MG PO (09:00)
[2024-01-26] MEDS: PLAVIX 75 MG PO (09:00)
[2024-01-26] MEDS: PROTONIX 20 MG PO (09:00)
[2024-01-26] MEDS: ASPIR LOW (ENTERIC COATED) 81 MG PO (09:00)
[2024-01-26 11:00] VITALS: BP 160/99
--- NOTE | 2024-01-26 11:16 | W.DCSUMMARY ---
Discharge Summary
Discharge Data
Date of Admission: 01/22/24
Date of Discharge: 01/26/24
-
Pending Results: No
Hospital Course
Principal Diagnosis:
Generalized weakness and unsteady on the feet due to acute pontine stroke
Chronic Diagnoses:�
hypertension (was not taking medication prior to admission), started Norvasc this admission
Gastroesophageal reflux disease
Consultations:�
Neurology
Procedures:�
None
Clinical course:�
This is a 68-year-old male with past medical history as stated above, who presented with generalized weakness and difficulty with walking.
He was visiting [place] from [place] where he resides normally.
Problem 1:
Generalized weakness due to acute pontine stroke evidenced by both his CT head and MRI brain.
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
His LDL was noted to be high at 135, and he was started with Lipitor 40 mg at bedtime.
His A1c was within normal limit at 5.2%.
His echo was unrevealing: EF 55-60%. Mild concentric left ventricular hypertrophy. Normal diastolic function. Normal right ventricular size and function. No significant valvular pathology
He was started with dual antiplatelet therapy aspirin and Plavix for 21 days total, then continue with aspirin after that.
He was discharged to rehab per PT OT and PMR recommendation.
Problem 2:
Essential hypertension.
Of note, the patient was not on any medication for blood pressure control prior to admission.
He was started with Norvasc 2.5 mg BID for better BP control.
As for the rest of his medical problems, they were stable during his hospital stay.
Discharge Plan
-
Patient Disposition: Acute Rehab Facility
Discharge Diagnosis/Procedures: Acute stroke in the jos[place] mig[place]; hyperlipidemia (high cholesterol level); hypertension
Condition: Fair
Diet: As tolerated, Low Fat, Low Cholesterol and Low Sodium
Activity: As tolerated
Driving Restrictions: No driving
Activity Restrictions/Additional Instructions:
Follow up with vascular surgery outpatient for your 70% narrowing of right internal carotid artery
Referrals:
NONE,* [Family Provider] - in less than 1 week
Additional Discharge Medication Instructions: Take Lipitor 40 mg daily for your high cholesterol
Continue dual antiplatelet therapy with aspirin and Plavix for 21 days total, then aspirin alone after that
Continue Norvasc for blood pressure control
Prescriptions:
New
aspirin 81 mg Tablet,Delayed Release (Dr/Ec)
81 mg PO DAILY Qty: 30 0RF
atorvastatin 40 mg Tablet
40 mg PO QPM Qty: 30 0RF
amlodipine 2.5 mg Tablet
2.5 mg PO BID Qty: 60 0RF
clopidogrel 75 mg Tablet
75 mg PO DAILY Qty: 16 0RF
Continued
omeprazole 10 mg Capsule,Delayed Release(Dr/Ec)
10 mg PO DAILY
Visine Dry Eye Relief 1 % Drops
1 drp BOTH EYES DAILYPRN PRN (Reason: dry eyes)
Unknown Eye Drops
1 drp BOTH EYES HSPRN PRN (Reason: dry eyes)
Patient Comments:
01/22/2024, pt. is unsure of the name of these eye drops; pt. thinks that it is maybe Pataday but is not sure for certain.
Discharge Orders:
Discharge Patient (As Directed); Ordered 01/26/24
Ordered By: Sherri Caberra
Discharge Date and Time
Print Language: POLISH
[2024-01-26 15:00] VITALS: BP 132/89
[2024-01-26] MEDS: LOVENOX SC (17:18)
[2024-01-26] MEDS: LIPITOR 40 MG PO (17:18)
[2024-01-26] MEDS: LOVENOX 40 MG SC (17:20)
== END 2024-01-26 17:41 | DRG 65 ==
LOC: 4 WEST ACU 15:04
PROVIDERS: ADMITTING PHYSICIAN Internal Medicine; EMERGENCY PHYSICIAN Emergency Medicine; OTHER PHYSICIAN Physical Medicine & Rehabilitation; OTHER PHYSICIAN Psychiatry & Neurology Neurology
DX: I63.81 Other cerebral infarction due to occlusion or stenosis of small artery (principal); G81.94 Hemiplegia, unspecified affecting left nondominant side; I10 Essential (primary) hypertension; K21.9 Gastro-esophageal reflux disease without esophagitis; F17.200 Nicotine dependence, unspecified, uncomplicated; R26.2 Difficulty in walking, not elsewhere classified; R47.81 Slurred speech; R29.810 Facial weakness; I65.23 Occlusion and stenosis of bilateral carotid arteries; E78.00 Pure hypercholesterolemia, unspecified; R29.2 Abnormal reflex
CPT/HCPCS: 70450; 70544; 70548; 70551; 72141; 80053; 80061; 83036; 85027; 92523; 92610; 93005; 93306; 97112; 97116; 97129; 97167; 97530; 97535; 99285; A9585; Q9950